=== PATIENT | female | born 1985 ===

== ENCOUNTER 2022-11-23 08:30 | Day surgery (SDC) | payer OTHER ==
[2022-11-23] MEDS ORDERED: NAPR500T14 PO (15:47)
[2022-11-23] MEDS ORDERED: MORGIDOX100 MG PO (15:47)
== END 2022-11-23 16:25 | disposition home or self-care (01) ==
LOC: CIR.AMB 08:30
PROVIDERS: ATTEND Obstetrics & Gynecology
DX: N95.0 Postmenopausal bleeding (principal); N88.2 Stricture and stenosis of cervix uteri; N84.0 Polyp of corpus uteri; D25.0 Submucous leiomyoma of uterus; Z20.822 Contact with and (suspected) exposure to COVID-19